=== PATIENT | female | born 1940 | race Caucasian/White ===

== ENCOUNTER 2016-05-20 08:56 | Outpatient (CLI) | payer MEDICARE, OTHER ==
[2016-05-20 12:23] LABS: #Basophils 0.1 thou/uL (0.0-0.2); #Eosinphils 0.2 thou/uL (0.0-0.7); #Lymphocytes 1.8 thou/uL (1.20-3.40); #Monocytes 0.5 thou/uL (0.11-0.59); %Basophils 1.1 % (0.0-1.0); %Eosinophils 2.1 % (0.0-10.0); %Monocytes 6.9 % (0.0-10.0); Hematocrit 43.1 % (36.0-47.0); Mean Platelet Volume 6.9 fL (7.4-10.4); Red Blood Cell (RBC) Count 4.85 mill/uL (4.20-5.40); White Blood Cell (WBC) Count 7.6 thou/uL (4.8-10.8)
[2016-05-20 12:41] LABS: ALT (SGPT) 21 U/L (0-55); AST (SGOT) 22 U/L (5-34); Alkaline Phosphatase 137 U/L (40-150); Anion Gap 11 mmol/L (10-20); BUN (Urea Nitrogen) 18 mg/dL (9.8-20.1); Bilirubin, Direct 0.2 mg/dL (0.1-0.3); Bilirubin, Total 0.8 mg/dL (0.2-1.2); Calc. Creatinine Clearance 0 mL/min (70-130); Calcium 9.3 mg/dL (7.8-10.44); Carbon Dioxide 30 mmol/L (23-31); Chloride 105 mmol/L (98-107); Estimated GFR-MDRD 60; LDL Cholesterol, Calculated 61 mg/dL; Protein, Total 7.1 g/dL (5.8-8.1)
[2016-05-20 12:49] LABS: Hemoglobin A1c 5.8 % (4.0-6.0)
== END 2016-05-20 08:57 ==
LOC: NAVSJIPCSP 08:56
PROVIDERS: ATTEND Family Medicine
DX: E78.5 Hyperlipidemia, unspecified (principal); E11.9 Type 2 diabetes mellitus without complications; I10 Essential (primary) hypertension; Z79.899 Other long term (current) drug therapy
CPT/HCPCS: 36415; 80048; 80061; 80076; 83036; 84443; 85025

== ENCOUNTER 2016-09-13 08:16 | Outpatient (CLI) | payer MEDICARE, OTHER ==
[2016-09-13 13:04] LABS: ALT (SGPT) 21 U/L (8-55); AST (SGOT) 23 U/L (5-34); Albumin 4.3 g/dL (3.4-4.8); Alkaline Phosphatase 144 U/L (40-150); Anion Gap 17 mmol/L (10-20); BUN (Urea Nitrogen) 19 mg/dL (9.8-20.1); Bilirubin, Direct 0.2 mg/dL (0.1-0.3); Bilirubin, Total 0.6 mg/dL (0.2-1.2); Calc. Creatinine Clearance 0 mL/min (70-130); Calcium 9.4 mg/dL (7.8-10.44); Carbon Dioxide 24 mmol/L (23-31); Cardiac Risk 3.8 (Less than 4.5); Chloride 101 mmol/L (98-107); Cholesterol 173 mg/dl (< 200 Desired); Estimated GFR-MDRD 61; Glucose 116 mg/dL (83-110); HDL Cholesterol 45 mg/dL (>60 Neg Risk); LDL Cholesterol, Calculated 53 mg/dL; Potassium 3.7 mmol/L (3.5-5.1); Protein, Total 7.1 g/dL (6.0-8.3); Sodium 138 mmol/L (136-145); Triglycerides 374 mg/dL (Less than 150)
[2016-09-13 13:09] LABS: #Basophils 0.1 thou/uL (0.0-0.2); #Eosinphils 0.1 thou/uL (0.0-0.7); #Lymphocytes 2.3 thou/uL (1.20-3.40); #Monocytes 0.5 thou/uL (0.11-0.59); #Neutrophils 5.8 thou/uL (1.40-6.50); %Basophils 0.8 % (0.0-1.0); %Eosinophils 1.7 % (0.0-10.0); %Lymphocytes 26.3 % (21.0-51.0); %Monocytes 5.5 % (0.0-10.0); %Neutrophils 65.7 % (42.0-75.0); Hemoglobin 14.1 g/dL (12.0-16.0); Mean Corpuscular HGB CONC 33.8 g/dL (32.0-36.0); Mean Corpuscular Hemoglobin 29.4 pg (27.0-31.0); Mean Corpuscular Volume 86.9 fl (81.0-99.0); Mean Platelet Volume 7.1 fL (7.4-10.4); Platelet Count 220 thou/uL (130-400); RBC Distribution Width 12.4 % (11.5-14.5); White Blood Cell (WBC) Count 8.8 thou/uL (4.8-10.8)
[2016-09-13 13:33] LABS: Hemoglobin A1c 6.1 % (4.0-6.0)
== END 2016-09-13 08:17 | disposition home or self-care (01) ==
LOC: NAVSJIPCSP 08:16
PROVIDERS: ATTEND Family Medicine
DX: E78.5 Hyperlipidemia, unspecified (principal); E11.9 Type 2 diabetes mellitus without complications; I10 Essential (primary) hypertension; G62.9 Polyneuropathy, unspecified; F41.8 Other specified anxiety disorders; N39.0 Urinary tract infection, site not specified; M25.561 Pain in right knee; R35.0 Frequency of micturition; R41.3 Other amnesia; Z79.899 Other long term (current) drug therapy
CPT/HCPCS: 36415; 80048; 80061; 80076; 83036; 84443; 85025

== ENCOUNTER 2017-01-17 09:38 | Outpatient (CLI) | payer MEDICARE, OTHER ==
[2017-01-17 12:43] LABS: #Eosinphils 0.1 thou/uL (0.0-0.7); #Lymphocytes 1.8 thou/uL (1.20-3.40); #Monocytes 0.4 thou/uL (0.11-0.59); #Neutrophils 5.4 thou/uL (1.40-6.50); %Basophils 0.6 % (0.0-1.0); %Eosinophils 1.4 % (0.0-10.0); %Lymphocytes 23.1 % (21.0-51.0); %Monocytes 5.7 % (0.0-10.0); %Neutrophils 69.2 % (42.0-75.0); Hemoglobin 13.6 g/dL (12.0-16.0); Mean Corpuscular HGB CONC 33.7 g/dL (32.0-36.0); Mean Corpuscular Hemoglobin 29.3 pg (27.0-31.0); Mean Platelet Volume 6.3 fL (7.4-10.4); Platelet Count 206 thou/uL (130-400); RBC Distribution Width 12.4 % (11.5-14.5); Red Blood Cell (RBC) Count 4.65 mill/uL (4.20-5.40); White Blood Cell (WBC) Count 7.8 thou/uL (4.8-10.8)
[2017-01-17 12:45] LABS: ALT (SGPT) 25 U/L (8-55); AST (SGOT) 21 U/L (5-34); Albumin 4.2 g/dL (3.4-4.8); Alkaline Phosphatase 161 U/L (40-150); Anion Gap 16 mmol/L (10-20); BUN (Urea Nitrogen) 15 mg/dL (9.8-20.1); Bilirubin, Direct 0.2 mg/dL (0.1-0.3); Bilirubin, Total 0.6 mg/dL (0.2-1.2); Calc. Creatinine Clearance 0 mL/min (70-130); Calcium 9.1 mg/dL (7.8-10.44); Carbon Dioxide 26 mmol/L (23-31); Cardiac Risk 4.5 (Less than 4.5); Chloride 103 mmol/L (98-107); Cholesterol 187 mg/dl (< 200 Desired); Estimated GFR-MDRD 70; Glucose 127 mg/dL (83-110); HDL Cholesterol 42 mg/dL (>60 Neg Risk); LDL Cholesterol, Calculated 73 mg/dL; Potassium 3.5 mmol/L (3.5-5.1); Protein, Total 6.8 g/dL (6.0-8.3); Sodium 141 mmol/L (136-145); Triglycerides 359 mg/dL (Less than 150)
[2017-01-17 13:16] LABS: Hemoglobin A1c 6.4 % (4.0-6.0)
== END 2017-01-17 09:39 | disposition home or self-care (01) ==
LOC: NAVSJIPCSP 09:38
PROVIDERS: ATTEND Family Medicine
DX: E78.5 Hyperlipidemia, unspecified (principal); E11.9 Type 2 diabetes mellitus without complications; I10 Essential (primary) hypertension; Z79.899 Other long term (current) drug therapy
CPT/HCPCS: 36415; 80048; 80061; 80076; 83036; 84443; 85025

== ENCOUNTER 2017-01-25 18:25 | Outpatient (CLI) | payer MEDICARE, OTHER ==
[2017-01-25 19:20] LABS: Bilirubin Negative (Negative); Blood, Urine Trace (Negative); Clarity Clear (Clear); Glucose, Urine (Dipstick) Negative (Negative); Leukocyte Trace (Negative); Nitrite Negative (Negative); Protein, Urine (Dipstick) Negative (Neg-Trace); Urobilinogen 0.2 mg/dL (0.2-1.0)
[2017-01-25 19:48] LABS: Bacteria/HPF 1+ HPF (None Seen); RBC/HPF 0-3 HPF (0-3); Squamous Epithelial 0-3 HPF (0-3); WBC/HPF 0-3 HPF (0-3)
== END 2017-01-25 18:26 | disposition home or self-care (01) ==
LOC: NAVSJIPCSP 18:25
PROVIDERS: ATTEND Family Medicine
DX: R35.0 Frequency of micturition (principal)
CPT/HCPCS: 81001

== ENCOUNTER 2020-06-17 21:05 | Emergency (ER) | payer MEDICARE, OTHER ==
--- NOTE | 2020-06-18 08:00 | CT ---
PRELIMINARY REPORT/[facility]/EMERGENCY AFTER HOURS PROCEDURE EXAM: CT Head Without Intravenous Contrast. CLINICAL HISTORY: Patient is a 80-year-old female with history of dementia who had a fall earlier this afternoon approx imately 2 hours ago which was unwitnessed but her was away at the store. Her reports that when he got home she got herself into bed and she is unable to really tell him what happ ened. She does report that she remembers falling and hitting her head but she does not remember she is not able to relate the specifics of the incident. Her believes that she tripped on a cord and hit her head on the chest but he is guessing. Unknown loss of consciousness. Patient is complaining of some pain in her forehead where she has a big contusion, some soreness of her left salazar d, and some chronic pain in her low back. TECHNIQUE: Axial computed tomography images of the head/brain without intravenous contrast. COMPARISON: None provided. FINDINGS: BRAIN: No acute intracranial hemorrhage. No evidence of acute territorial infarct. There is mild diffuse par enchymal volume loss with extensive atrophy of the bilateral temporal lobes, left greater than right no mass-effect or midline shift. VENTRICLES: No hydrocephalus. ORBITS: The orbits are unremarkable. SINUSES AND MASTOIDS: The paranasal sinuses and mastoid air cells are clear. SOFT TISSUES: Small frontal scalp contusion. Extracranial soft tissues are otherwise unremarkable. BONES: No acute skull fracture. IMPRESSION: No acute intracranial abnormality. Bilateral temporal lobe atrophy, left greater than right. Small frontal scalp contusion. ELECTRONICALLY SIGNED BY: Manuel Pettit DO Jun 18, 2020 12:39:51 AM [employer] INST[employer]ER This report is intended for review by the ordering physician only, in accordance of law. If you recei ve this report in error, please call [facility] at [phone]. FINAL REPORT Exam: Head CT without contrast HISTORY: Status post fall. Trauma. Pain. COMPARISON: 12/27/2017. FINDINGS: Hemorrhage: No intraparenchymal hemorrhage or extra-axial hematoma. Brain parenchyma: Cortical bruno-white matter differentiation is preserved. No mass effect or midline shift. Basilar cisterns are patent.Stable atrophy. Ventricular system: Ventricles and sulci are patent and symmetric. Calvarium: Intact. Frontal scalp hematoma. Sinuses and mastoid air cells: Adequate aeration. IMPRESSION: 1. This report is in agreement with initial report by [facility]. 2. Frontal scalp hematoma. No intracranial post traumatic sequelae. Transcribed Date/Time: 06/18/2020 9:44 AM
--- NOTE | 2020-06-18 08:10 | CT ---
PRELIMINARY REPORT/[facility]/EMERGENCY AFTER HOURS PROCEDURE EXAM: CT Cervical Spine Without Intravenous Contrast. CLINICAL HISTORY: Patient is a 80-year-old female with history of dementia who had a fall earlier this afternoon approx imately 2 hours ago which was unwitnessed but her was away at the store. Her reports that when he got home she got herself into bed and she is unable to really tell him what happ ened. She does report that she remembers falling and hitting her head but she does not remember she is not able to relate the specifics of the incident. Her believes that she tripped on a cord and hit her head on the chest but he is guessing. Unknown loss of consciousness. Patient is complaining of some pain in her forehead where she has a big contusion, some soreness of her left salazar d, and some chronic pain in her low back. TECHNIQUE: Axial computed tomography images of the cervical spine without intravenous contrast. Sagittal and cor onal reformations performed. COMPARISON: None provided. FINDINGS: BONES: No fracture. DISCS / DEGENERATIVE CHANGES: Multilevel degenerative changes are present as evidenced by disc height loss, disc osteophyte complex formation and severe facet arthrosis. There is a variable degree of multilevel neural foraminal stenosis predominantly moderate to severe. Mild to moderate spinal canal narrowing. There is subtle anterolisthesis of C4 on C5, suspect degenerative in etiology. Alignment is otherwise grossly maintained. SOFT TISSUES: No prevertebral soft tissue swelling. No apical pneumothorax. IMPRESSION: No discrete fracture identified. Extensive degenerative changes throughout the cervical spine resulting in variable degree of neural f oraminal and spinal canal stenosis. There is slight anterolisthesis of C4 on C5, suspect degenerative in etiology. However, consider MR evaluation as clinically warranted. ELECTRONICALLY SIGNED BY: Manuel Pettit DO Jun 18, 2020 12:44:32 AM METEOROLOGICAL AIDE This report is intended for review by the ordering physician only, in accordance of law. If you recei ve this report in error, please call [facility] at [phone]. FINAL REPORT Exam: CT cervical spine without contrast HISTORY: Pain. Injury. Status post fall. COMPARISON: 11/21/2017 FINDINGS: No craniocervical dissociation. Appropriate alignment of the lateral masses of C1 and C2. Intact odon toid process Appropriate alignment of the facets. Stable grade 1 anterolisthesis of C3 upon C4 and C4 upon C5. Soft tissue neck structures: No mass, lymphadenopathy or hematoma. No prevertebral soft tissue swelli ng. Upper mediastinum and lung apices: No acute abnormality. Old right rib fractures are identified. Central spinal canal: Moderate degenerative disc disease at C5-C6 and C6-C7. There is associated mode rate to severe central canal stenosis and neural foraminal narrowing. Vertebral bodies: Cervical spine vertebral body height is maintained. No fracture. IMPRESSION: 1. This report is in agreement with initial report by [facility]. 2. Stable anterolisthesis at C3-C4 and C4-C5. 3. No cervical spine fracture. Transcribed Date/Time: 06/18/2020 9:47 AM
== END 2020-06-18 02:06 | disposition home or self-care (01) ==
LOC: NAV ERS 21:05
DX: S00.93XA Contusion of unspecified part of head, initial encounter (principal); E11.9 Type 2 diabetes mellitus without complications; E78.5 Hyperlipidemia, unspecified; E78.00 Pure hypercholesterolemia, unspecified; I10 Essential (primary) hypertension; Z79.82 Long term (current) use of aspirin; Z79.899 Other long term (current) drug therapy; W01.198A Fall on same level from slipping, tripping and stumbling with subsequent striking against other object, initial encounter
CPT/HCPCS: 70450; 72125